=== PATIENT | male | born 1980 ===

== ENCOUNTER 2025-06-01 10:05 | Emergency (ER) | payer OTHER, SELFPAY ==
[2025-06-01 10:07] VITALS: BP 115/83
--- NOTE | 2025-06-01 11:22 | ED.MUSCINJ ---
HPI-Injury
<Suki Acevedo MD, Resident - Last Filed: 06/01/25 13:10>
General
Chief Complaint: Musculo-Skeletal Complaint
Source: patient
Time Seen by Provider: 06/01/25 11:18
History of Present Illness-Injury
Is this injury a work related problem?: No
Is pt an associate of [facility]?: No
Initial Injury comments:
44 year old male comes to the ED after dropping a 40lb weight on his right foot earlier this morning. He was at his home lifting weights when he dropped the 40lb weight on his right foot. He currently has a throbbing pain and says he can feel some
lacerations on lateral sides of his second digit on right foot.
Past History
<Suki Acevedo MD, Resident - Last Filed: 06/01/25 13:10>
Past History
ED Past Medical History: None
ED Past Surgical History: None
Social History
Living: with family
Review of Systems
<Suki Acevedo MD, Resident - Last Filed: 06/01/25 13:10>
Review of Systems
Allergies reviewed?: No
Constitutional: Reports no symptoms
EENT: Reports no symptoms
Respiratory: Reports no symptoms
Cardiac: Reports no symptoms
ABD/GI: Reports no symptoms
: Reports no symptoms
Musculoskeletal: Reports other (right foot second digit throbbing pain)
Skin: Reports no symptoms
Neurological: Reports no symptoms
Endocrine: Reports no symptoms
Hematologic/Lymphatic: Reports no symptoms
Psychiatric: Reports no symptoms
Musculoskeletal Injury Exam
<Suki Acevedo MD, Resident - Last Filed: 06/01/25 13:10>
Musculoskeletal Injury Exam
Right Second Toe:
Pain with Movement?: Moderate
Tender to palpation?: Moderate
Soft tissue swelling?: Mild
External deformity and angulation?: Mild
Contusion?: Moderate
Hematoma-local bleeding into tissue?: Moderate
Strain- Sprain- Tear (Connective tissue injury)?: Moderate
Crepitus with movement?: No
Joint instability?: No
Range of motion: Limited
Distal skin color and temperature: normal-warm & good color
Capillary Refill: normal
Skin Exam
<Suki Acevedo MD, Resident - Last Filed: 06/01/25 13:10>
Laceration
Right Second Toe:
Length in cm: 3
Orientation: horizontal
Type of Laceration: simple
Any active bleeding?: low grade venous oozing
Distal skin color and temperature: normal-warm & good color
Range of motion: full
Phy Exam
<Suki Acevedo MD, Resident - Last Filed: 06/01/25 13:10>
General Physical Exam
General Presentation: well appearing and moderate distress
General Skin: warm and dry
General Mental: alert
Injury Course
<Suki Acevedo MD, Resident - Last Filed: 06/01/25 13:10>
Orders/Labs/Results
Orders:
Orders
06/01/25 10:08
Toes 2 Views, Right [CR Toe(s) Min 2 Vw Right] Urgent
Comment:
Reason For Exam: dropepd a weight on the toe
Indicate Which Toe:: Second
<Timothy Jackson, DO - Last Filed: 06/01/25 12:49>
Orders/Labs/Results
Orders:
Orders
06/01/25 10:08
Toes 2 Views, Right [CR Toe(s) Min 2 Vw Right] Urgent
Comment:
Reason For Exam: dropepd a weight on the toe
Indicate Which Toe:: Second
Procedures
<Suki Acevedo MD, Resident - Last Filed: 06/01/25 13:10>
Laceration Closure
Right Second Toe:
Status of Wound: clean
Size of Wound in cm: 3
Description of Wound Edges: ragged
Preparation: cleaned with saline
Anesthesia: 1% Lidocaine
Revision/Debridement: routine- no revision
Type of Closure: single layer closure
Skin Closure Material: 4-0 nylon
Number of sutures: 5
Digital Block
Location of injection for digital block: base of digit (base of second toe)
Indiction for Digital Block: surgical repair
Was sensory exam normal prior to exam?: not tested
Type of anesthesia: 1% Lidocaine w/o EPI
Complications: none- good anesthesia
Additional information:
Wound was cleaned with normal saline, digital block of second toe was done with 1% lidocaine
Incision/Drainage/Joint Aspiration
Right Second Toe:
Anethesia: 1% Lidocaine
Preparation: cleaned with soap & water
Type of procedure: drain
Nature of site: hematoma
Description of abscess: less than 3cm
How much fluid was obtained?: scant amount
Fluid description: bloody
Treatment: left open for drainage and antibiotics started
Additional information:
Subungal hematoma drained with following opening of base of nail with electrocautery
<Suki Acevedo MD, Resident - Last Filed: 06/01/25 13:10>
MDM/Problems Addressed
Differential Diagnosis Includes:
Traumatic right second toe injury, right second toe fracture, subungal hematoma
MDM/Problems Addressed:
X-ray of right foot showed mildly displaced fracture of distal phalanx of second toe with small focus of subcutaneous gas
<Suki Acevedo MD, Resident - Last Filed: 06/01/25 13:10>
*Pulse Oximetry
SaO2: 96
Oxygen Mode of Delivery: Room air
Patient hypoxic: no
*Critical Care Note
Total Time (30-74mins, 75-104mins- exclusive of procedures): Not Applicable
<Suki Acevedo MD, Resident - Last Filed: 06/01/25 13:10>
Update Note
Update Note:
Patient's right second toe found to have multiple lacerations and a subungual hematoma.
Subungual hematoma drained following puncturing of nail with electrocautery
Lacerations repaired of nail using 5 stitches
Will give three day course of keflex and information to follow up with Orthopedics
Wound care instructions given, will get stitches removed in 7-10 days
ED Attending Note
<Suki Acevedo MD, Resident - Last Filed: 06/01/25 13:10>
-
Portions of this chart may have been created with voice recognition software.� Occasional wrong word or��sound alike� substitutions may have occurred due to the inherent limitations of voice recognition software.
<Timothy Jackson, DO - Last Filed: 06/01/25 12:49>
ED Attending Note
Patient seen and examined by attending physician: Yes
I performed the substantive portion of visit, reviewed & personally made and approve the management plan that is documented in note by myself or JYOTHI.: Yes
ED Attending Note:
I evaluated the patient at bedside. We did perform a subungual hematoma drainage with electrocautery. He has a rather deep oblique large laceration just proximal to the nailbed. We did suture the soft tissue surrounding the nail. Evidence of
distal fracture�Taj tape and he is to follow-up with Ortho. Prophylactic antibiotics.
Discharge Plan
Departure
Patient Disposition: Home (Routine Discharge)
Date of Disposition: 06/01/25
Time of Disposition: 12:35
Patient with high blood pressure during this ER visit?: No
Condition: Good
Discharge Problem:
Closed fracture of phalanx of right second toe, Subungual hematoma of second toe of right foot
Instructions: Bruising Under the Nail, Toe Fracture ED, Caring for a closed surgical wound
Prescriptions:
New
cephalexin 500 mg capsule
500 mg PO Q8H 3 Days Qty: 9 0RF
Referrals:
NONE,* [Family Provider, Internal Medicine]
Interventions
Interventions:
*Risk Screen - Suicide Last Done: 06/01/25 10:08
*General Assessment Last Done: 06/01/25 10:08
*Neglect/Abuse Screening Last Done: 06/01/25 10:08
*ED COVID-19 Vaccine History Last Done: 06/01/25 10:08
*Nursing Disposition Last Done: 06/01/25 12:53
ED-Musculoskeletal Assessment Last Done: 06/01/25 12:53
Discharge Date and Time
Discharge Date/Time: 06/01/25 12:54
Print Language: NIUEAN
== END 2025-06-01 12:54 | disposition home or self-care (01) ==
LOC: EMR 10:05
PROVIDERS: EMERGENCY PHYSICIAN Emergency Medicine
DX: S92.531A Displaced fracture of distal phalanx of right lesser toe(s), initial encounter for closed fracture (principal); S90.211A Contusion of right great toe with damage to nail, initial encounter; S91.114A Laceration without foreign body of right lesser toe(s) without damage to nail, initial encounter; W20.8XXA Other cause of strike by thrown, projected or falling object, initial encounter; Y93.B3 Activity, free weights; Y92.009 Unspecified place in unspecified non-institutional (private) residence as the place of occurrence of the external cause
CPT/HCPCS: 99284; 12002; 11740; 73660